=== PATIENT | male | born 1995 | race Caucasian/White ===

== ENCOUNTER 2018-03-01 02:36 | Emergency (ER) | payer SELFPAY ==
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
[2018-03-01 07:50] VITALS: BP 113/76
== END 2018-03-01 08:00 | disposition home or self-care (01) ==
LOC: ER 02:53
DX: S10.93XA Contusion of unspecified part of neck, initial encounter (principal); F10.920 Alcohol use, unspecified with intoxication, uncomplicated
CPT/HCPCS: 99284